=== PATIENT | female | born 1950 | race African-American/Black ===

== ENCOUNTER 2021-06-02 15:17 | Emergency (ER) | payer OTHER, SELFPAY ==
[2021-06-02 15:29] VITALS: BP 193/104; PULSE 90; RESP 18; TEMP 36.9; O2SAT 99
--- NOTE | 2021-06-02 16:13 | PC.NURSE ---
pt states she is going to go home and contact pmd.
== END 2021-06-02 17:20 | disposition left against medical advice (07) ==
PROVIDERS: PCP Physician Assistant
DX: I10 Essential (primary) hypertension (principal)
CPT/HCPCS: 99199

== ENCOUNTER 2023-07-07 07:37 | Outpatient (CLI) | payer SELFPAY ==
--- NOTE | ~2023-07-07 | XR_ITS ---
Cervical Spine: AP, lateral, open-mouth views Clinical History: Pain Findings: The normal lordotic curve is maintained. The vertebral bodies and posterior elements appea r intact. The intervertebral disc spaces are well maintained. Pre-vertebral soft tissues are unremar kable. Impression: No significant abnormality is seen. Reviewed, dictated and finalized at [facility]. [employer] S[employer] LANGUAGE INTERPRETER Impression: No significant abnormality is seen.
--- NOTE | ~2023-07-07 | XR_ITS ---
Lumbosacral Spine: AP and lateral views Clinical History: Pain Findings: The normal lordotic curve is maintained. The vertebral bodies and posterior elements are i ntact. There is severe degenerative disc narrowing at L5-S1. There is mild to moderate facet arthropa thy throughout the lumbar spine.. The sacroiliac joints are normally outlined. Impression: Severe degenerative disc narrowing at L5-S1. Mild to moderate facet arthropathy, especially the lower lumbar spine. Reviewed, dictated and finalized at location . 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 Mild to moderate facet arthropathy, especially the lower lumbar spine.
== END 2023-07-07 07:38 ==
DX: M51.37 Other intervertebral disc degeneration, lumbosacral region (principal); M47.816 Spondylosis without myelopathy or radiculopathy, lumbar region
CPT/HCPCS: 72040; 72100